=== PATIENT | male | born 1965 | race Caucasian/White ===

== ENCOUNTER 2020-06-21 20:50 | Emergency (ER) | payer OTHER ==
[~2020-06-21] VITALS: Ht 177.8 cm; Wt 125.0 kg
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
--- NOTE | 2020-06-21 21:09 | NUR ---
REPORT GIVEN TO KESHIA GRANT
[2020-06-21] MEDS ORDERED: PLEASE ENTER ALLERGIES MC SCH (21:30)
[2020-06-21] MEDS ORDERED: DIPH,PERTUSS(ACELL),TET VAC/PF 0.5 ML IM-VACC ONE (21:30)
[2020-06-21] MEDS ORDERED: SODIUM CHLORIDE 0.9% 1,000ML IVBOLUS ONE (21:30)
[2020-06-21 21:45] LABS: BASOPHILS % (AUTO) 1 % (0-1); EOSINOPHILS % (AUTO) 3 % (1-7); LYMPHOCYTES % (AUTO) 26 % (22-44); MD NO; MEAN CORPUSCULAR HEMOGLOBIN 31.6 pg (27.5-34.5); MEAN CORPUSCULAR HGB CONC 33.5 g/dL (33.2-36.2); MEAN PLATELET VOLUME 7.8 fL (7.4-10.4); MONOCYTES % (AUTO) 13 % (2-9); NEUTROPHILS % (AUTO) 58 % (42-75); PLATELET COUNT 245 x10^3/uL (130-400); RED BLOOD COUNT 4.89 x10^6/uL (4.38-5.82); RED CELL DISTRIBUTION WIDTH 13.9 % (9.4-14.8)
[2020-06-21 21:57] LABS: ALANINE AMINOTRANSFERASE 41 U/L (12-78); ALBUMIN 3.6 g/dL (3.4-5.0); ANION GAP 6 mmol/L (5-15); CALCIUM 8.4 mg/dL (8.5-10.1); CHLORIDE 102 mmol/L (98-107); CREATININE 0.99 mg/dL (0.7-1.3)
[2020-06-21 22:01] LABS: ALKALINE PHOSPHATASE 51 U/L (45-117); BILIRUBIN,TOTAL 0.3 mg/dL (0.2-1.0); TOTAL PROTEIN 7.1 g/dL (6.4-8.2); TROPONIN I < 0.015 ng/mL (0.000-0.045)
--- NOTE | 2020-06-21 22:09 | NUR ---
PIV STARTED TO RIGHT HAND X1 ATTEMPT, 18G. 1 LITER NS STARTED TO RUN
--- NOTE | 2020-06-21 23:19 | NUR ---
ORTHOSTATIC VITAL SIGNS TAKEN AND CHARTED. PT STATES HE'S NOT FEELING DIZZY OR OUT OF SORTS AT THIS TIME.
--- NOTE | 2020-06-21 23:31 | NUR ---
LAC TO POSTERIOR PORTION OF RIGHT EAR CLEANED WITH SALINE AND GAUZE, AND NOTED APPROX 2CM LAC IN THE SHAPE OF AN L BEHIND THE EAR. NO ACTIVE BLEEDING AT THIS TIME.
--- NOTE | 2020-06-21 23:52 | NUR ---
PT ASSISTED TO STAND, AND IS STRONG AND STABLE. PT WALKED DOWN THE TADEO AND IS NOT DIZZY NOR DID HE FEEL WEAK. MD TO BEDSIDE TO GLUE THE EAR LAC BEHIND HIS RIGHT EAR. IV INTACT. PTS AT BEDSIDE.
[2020-06-22 00:09] VITALS: BP 131/83
[2020-06-22] MEDS ORDERED: OMNIPAQUE 350 MG/ML, 100ML BOTTLE ONE (00:10)
--- NOTE | 2020-06-22 00:10 | NUR ---
PT ON CR MONITOR. NO COMPLAINTS AT THIS TIME. RIGHT BEHIND THE EAR LAC REPAIRED WITH DERMABOND BY , AND PT TOLERATED WELL. NO CHANGES. PT TO GO TO CT FOR A CTA NOW.
--- NOTE | 2020-06-22 00:15 | NUR ---
PT ADDED INFORMATION, STATING HE HAD HIS FIRST COVID VACCINE 4 DAYS AGO. [employer].
--- NOTE | 2020-06-22 00:16 | NUR ---
PT TAKEN TO CT SCAN BY TECH VIA STRETCHER.
--- NOTE | 2020-06-22 00:31 | NUR ---
PT BACK FROM CTA.
--- NOTE | 2020-06-22 01:52 | NUR ---
PT GIVEN F/U AND D/C INSTRUCTIONS TO PT AND HE V/U. PT AMBULATORY WITH NO DISTRESS. PTS IV D/C'D AND CATH INTACT.
== END 2020-06-22 01:54 | disposition home or self-care (01) ==
LOC: ED 22:56
DX: S01.311A Laceration without foreign body of right ear, initial encounter (principal); S09.90XA Unspecified injury of head, initial encounter; R07.89 Other chest pain; R09.02 Hypoxemia; R55 Syncope and collapse; I10 Essential (primary) hypertension; X58.XXXA Exposure to other specified factors, initial encounter; Y93.89 Activity, other specified; Y92.89 Other specified places as the place of occurrence of the external cause; Y99.8 Other external cause status
CPT/HCPCS: 12011; 36415; 70450; 71045; 71275; 80053; 83880; 84484; 85025; 93005; 96360; 99285; J7030; Q9967